=== PATIENT | female | born 1990 | race African-American/Black ===

== ENCOUNTER 2017-06-27 16:05 | Emergency (ER) | payer OTHER ==
[~2017-06-27] VITALS: Ht 160 cm; Wt 70.2 kg
[2017-06-27 16:34] LABS: MCH 27.4 PG (29.0-34.0); MCHC 32.7 G/DL (30.0-36.0); MCV 83.7 FL (83-99); MEAN PLAT.VOLUME 9.9 uM^3 (9.5-12.4); PLATELET COUNT 182 K/uL (156-360); RBC DIS.WIDTH-CV 12.3 % (11.8-14.6); RBC DIS.WIDTH-SD 37.4 % (39-53); RED BLOOD COUNT 4.42 M/uL (3.80-5.20)
[2017-06-27 16:44] LABS: CHLORIDE 106 mEq/L (99-109); POTASSIUM 3.9 mEq/L (3.7-5.4); SODIUM 140 mEq/L (136-147)
[2017-06-27 16:47] LABS: ANION GAP 6 MEQ/L (2-14)
[2017-06-27 16:48] LABS: TOTAL BILIRUBIN 0.8 mg/dL (0.0-1.0)
[2017-06-27 16:50] LABS: ALKALINE PHOSPHATASE 38 IU/L (3-129); GFR ESTIMATE (CALCULATED) > 59 mL/min/
[2017-06-27 16:51] LABS: UREA NITROGEN (BUN) 14 mg/dL (9-23)
[2017-06-27 16:59] LABS: GLUCOSE 115 mg/dL (70-99); QUANTITATIVE HCG < 4.0 MIU/ML
[2017-06-27 17:44] LABS: ADD MIUA? YES; BILIRUBIN NEGATIVE; BLOOD NEGATIVE; COLOR YELLOW ((YELLOW)); GLUCOSE (STRIP) NEGATIVE; KETONES NEGATIVE; LEUKOCYTES MODERATE; NITRITE NEGATIVE; PROTEIN (STRIP) NEGATIVE; SPECIFIC GRAVITY 1.023 (1.000-1.030); UROBILINOGEN 0.2 MG/DL (0.2-1.0)
[2017-06-27 17:55] LABS: BACTERIA NONE SEEN /HPF; EPITHELIAL CELLS RARE /HPF; MUCUS TRACE /LPF; RED BLOOD CELLS 0-5 /HPF (0-5)
[2017-06-27 18:02] VITALS: BP 117/79
== END 2017-06-27 18:06 | disposition home or self-care (01) ==
LOC: EME 16:05
PROVIDERS: Nurse Practitioner Family
DX: R42 Dizziness and giddiness (principal); T54.91XA Toxic effect of unspecified corrosive substance, accidental (unintentional), initial encounter; T38.4X5A Adverse effect of oral contraceptives, initial encounter; Y99.0 Civilian activity done for income or pay
CPT/HCPCS: 80053; 81003; 84702; 85027; 99281; 99284

== ENCOUNTER 2017-07-15 21:59 | Emergency (ER) | payer OTHER ==
[~2017-07-15] VITALS: Ht 160 cm; Wt 69.2 kg
[2017-07-15 23:49] LABS: EOSINOPHIL (%) 0.9 % (0-5); EOSINOPHIL COUNT 0.1 K/uL (0-0.3); HEMATOCRIT 39.1 % (36.0-46.0); IMMATURE GRANULOCYTE (%) 0.2 % (0.0-0.7); INSTRUMENT ABS NEUTROPHIL CT 2.7 K/uL; LYMPHOCYTE COUNT 3.4 K/uL (1.0-2.8); MCHC 32.2 G/DL (30.0-36.0); MCV 83.9 FL (83-99); MEAN PLAT.VOLUME 10.2 uM^3 (9.5-12.4); MONOCYTE (%) 4.8 % (3-12); MONOCYTE COUNT 0.3 K/uL (0-0.8); NEUTROPHIL COUNT 2.7 K/uL (1.8-6.4); PLATELET COUNT 203 K/uL (156-360); RBC DIS.WIDTH-CV 12.3 % (11.8-14.6); RBC DIS.WIDTH-SD 36.9 % (39-53); RED BLOOD COUNT 4.66 M/uL (3.80-5.20); WHITE BLOOD COUNT 6.5 K/uL (4.1-10.2)
[2017-07-15 23:57] LABS: CHLORIDE 103 mEq/L (99-109); POTASSIUM 4.1 mEq/L (3.7-5.4); SODIUM 139 mEq/L (136-147)
[2017-07-15 23:58] LABS: MAGNESIUM 2.2 mg/dL (1.3-2.7)
[2017-07-15 23:59] LABS: GLUCOSE 94 mg/dL (70-99)
[2017-07-16 00:01] LABS: ANION GAP 8 MEQ/L (2-14)
[2017-07-16 00:03] LABS: GFR ESTIMATE (CALCULATED) > 59 mL/min/
[2017-07-16 00:04] LABS: UREA NITROGEN (BUN) 15 mg/dL (9-23)
[2017-07-16 00:10] LABS: TROP-I INTERPRETATION NEGATIVE; TROPONIN-I < 0.01 ng/mL (0.0-0.30)
[2017-07-16] MEDS ORDERED: MECLIZINE HCL25 MG PO (01:57)
[2017-07-16 02:17] VITALS: BP 91/65
== END 2017-07-16 02:18 | disposition home or self-care (01) ==
LOC: EME 21:59
PROVIDERS: Emergency Medicine
DX: R42 Dizziness and giddiness (principal); R20.2 Paresthesia of skin; Z85.528 Personal history of other malignant neoplasm of kidney
CPT/HCPCS: 70450; 71020; 80048; 83735; 84100; 84484; 85025; 85379; 93005; 99281; 99284

== ENCOUNTER 2017-09-09 08:36 | Emergency (ER) | payer OTHER ==
[~2017-09-09] VITALS: Ht 167.6 cm; Wt 67.9 kg
[~2017-09-09 08:36] MED LIST: MECLIZINE HCL25 MG PO
[2017-09-09 09:54] LABS: HEMATOCRIT 38.6 % (36.0-46.0); HEMOGLOBIN 12.7 G/DL (11.9-15.5); MCH 27.7 PG (29.0-34.0); MCHC 32.9 G/DL (30.0-36.0); MCV 84.1 FL (83-99); PLATELET COUNT 179 K/uL (156-360); RBC DIS.WIDTH-CV 12.2 % (11.8-14.6); RBC DIS.WIDTH-SD 36.8 % (39-53); RED BLOOD COUNT 4.59 M/uL (3.80-5.20); WHITE BLOOD COUNT 3.8 K/uL (4.1-10.2)
[2017-09-09 10:08] LABS: CHLORIDE 108 mEq/L (99-109); POTASSIUM 4.1 mEq/L (3.7-5.4); SODIUM 139 mEq/L (136-147)
[2017-09-09 10:10] LABS: GLUCOSE 88 mg/dL (70-99)
[2017-09-09 10:14] LABS: CREATININE 1.1 mg/dL (0.6-1.3); GFR ESTIMATE (CALCULATED) > 59 mL/min/; UREA NITROGEN (BUN) 10 mg/dL (9-23)
[2017-09-09 12:17] LABS: QUANTITATIVE HCG < 4.0 MIU/ML
[2017-09-09 13:46] LABS: APPEARANCE CLEAR ((CLEAR)); BILIRUBIN NEGATIVE; BLOOD LARGE; COLOR COLORLESS ((YELLOW)); GLUCOSE (STRIP) NEGATIVE; KETONES NEGATIVE; LEUKOCYTES NEGATIVE; NITRITE NEGATIVE; PROTEIN (STRIP) NEGATIVE; SPECIFIC GRAVITY 1.004 (1.000-1.030); UROBILINOGEN 0.2 MG/DL (0.2-1.0)
[2017-09-09 13:54] LABS: BACTERIA NONE SEEN /HPF; EPITHELIAL CELLS RARE /HPF; HYALINE CASTS 0-5 /LPF; MUCUS NONE SEEN /LPF; RED BLOOD CELLS 0-5 /HPF (0-5); UCUL ADDED? NO; WHITE BLOOD CELLS 0-5 /HPF (0-5)
[2017-09-09] MEDS ORDERED: ANTIVERT25 MG PO (14:47)
[2017-09-09 15:01] VITALS: BP 104/66
== END 2017-09-09 15:06 | disposition home or self-care (01) ==
LOC: EME 08:36
DX: R51 Headache (principal); R42 Dizziness and giddiness; Z85.528 Personal history of other malignant neoplasm of kidney; Z90.5 Acquired absence of kidney
CPT/HCPCS: 71046; 80048; 81003; 84702; 84702 90; 85027; 93005